=== PATIENT | female | born 1955 | race African-American/Black ===

== ENCOUNTER 2017-07-18 16:36 | Inpatient (IN) | payer OTHER ==
[2017-07-18 19:48] VITALS: BMI 29.1
--- NOTE | 2017-07-18 20:43 | HP ---
CIWA Score - CIWA Score Nausea/Vomitin Muscle Tremors: 2 Anxiety: 2 Agitation: 2 Paroxysmal Sweats: 2 Orientation: 1-Uncertain about Date Tacttile Disturbances: 2-Mild Itch/Numbness/Burn Auditory Disturbances: 1-Very Mild Visual Disturbances: 1-Very Mild Sensitivity Headache: 1-Very Mild CIWA-Ar Total Score: 16 Admission [facility] Chief Complaint: WITHDRAWAL SYMPTOMS Allergies/Adverse Reactions: Allergies Allergy/AdvReac Type Severity Reaction Status Date / Time shellfish derived AdvReac Verified 07/18/17 20:39 History of Present Illness: 61 Y.O. WOMAN WITH AN EXTENSIVE HISTORY OF ALCOHOL DEPENDENCE IS HERE SEEKING DETOX. SHE REPORTS HAVING A 12 YEAR HISTORY OF SOBRIETY. SHE WAS SEEN EARLIER AT [facility] AFTER SUSTAINING A FALL AND INJURING HER RIGHT EYE. ECCYMOSIS AND EDEMA TO RIGHT EYE NOTED. SHE WAS CLEARED TO BE EVALUATED FOR DETOX. Exam Limitations: Intoxication, Physical Impairment (GAIT IMBALANCE; HAS A CANE AND IS USING A MANUAL WHEELCHAIR FOR LOCOMOTION) - Ebola screening Have you traveled outside of the country in the last 21 days: No Have you had contact with anyone from an Ebola affected area: No Have you been sick,other than usual withdrawal symptoms: No Do you have a fever: No - Review of Systems Constitutional: Chills, Loss of Appetite, Changes in sleep, Weakness, Unintentional Wgt. Loss EENT: reports: Eye Pain (RIGHT EYE), Tearing, Other (RIGHT EYE EDEMA) Respiratory: reports: Cough Cardiac: reports: No Symptoms Reported GI: reports: Nausea, Other (INCONTINENCE OF BOWEL) : reports: Other (INCONTINENT OF BLADDER) Musculoskeletal: reports: Back Pain, Joint Pain Integumentary: reports: Dryness Neuro: reports: Headache, Tremors Endocrine: reports: No Symptoms Reported Hematology: reports: Anemia (LALIT) Psychiatric: reports: Judgement Intact, Mood/Affect Appropiate, Orientated x3, Depressed Other Systems: Reviewed and Negative Patient History - Patient Medical History Hx Anemia: Yes (LALIT ) Hx Asthma: Yes Hx Chronic Obstructive Pulmonary Disease (COPD): No Hx Cancer: No Hx Cardiac Disorders: No Hx Congestive Heart Failure: No Hx Hypertension: Yes Hx Hypercholesterolemia: Yes Hx Pacemaker: No HX Cerebrovascular Accident: No Hx Seizures: No Hx Dementia: No Hx Diabetes: Yes (TYPE II ) Hx Gastrointestinal Disorders: No Hx Liver Disease: No Hx Genitourinary Disorders: No Hx Sexually Transmitted Disorders: No Hx Renal Disease (ESRD): No Hx Thyroid Disease: No Hx Human Immunodeficiency Virus (HIV): No Hx Hepatitis C: Yes Hx Depression: Yes Hx Suicide Attempt: Yes (AT AGE 18, ATTETMPTED TO CUT HER WRISTS. ) Hx Bipolar Disorder: Yes Hx Schizophrenia: No - Patient Surgical History Past Surgical History: Yes Hx Section: Yes Hx Orthopedic Surgery: Yes (LEFT ANKLE-2013) Anesthesia Reaction: No - PPD History Previous Implant?: Yes Documented Results: Negative w/o proof PPD to be Administered?: Yes - Reproductive History Patient is a Female of Child Bearing Age (11 -55 yrs old): No - Smoking Cessation Smoking history: Current every day smoker Have you smoked in the past 12 months: Yes Aproximately how many cigarettes per day: 2 Initiated information on smoking cessation: Yes 'Breaking Loose' booklet given: 07/18/17 - Substance & Tx. History Hx Alcohol Use: Yes Hx Substance Use: No Substance Use Type: Alcohol Hx Substance Use Treatment: Yes (DETOX AND REHAB: 2013 AT [facility] ) - Substances Abused Alcohol Route: Oral Frequency: Daily Amount used: 6-8 CANS OF BEER Age of first use: 14 Date of Last Use: 07/17/17 Family Disease History - Family Disease History Family Disease History: Diabetes: Mother ( ), CA: Mother, Other: Father (ETOH DEPENDENCE; ), Mother Admission Physical Exam S - Vital Signs Vital Signs: Vital Signs - 24 hr 07/18/17 19:46 Temperature 98.2 F Pulse Rate 106 H Respiratory 20 Rate Blood Pressure 167/98 - Physical General Appearance: Yes: Tremorous, Anxious HEENTM: Yes: Hearing grossly Normal (RIGHT EYE EDEMA AND ECCYMOSIS), Other ( RIGHT EYE INJURY) Respiratory: Yes: Chest Non-Tender, Lungs Clear, Decreased Breath Sounds Neck: Yes: No masses,lesions,Nodules Breast: Yes: Breast Exam Deferred Cardiology: Yes: Regular Rhythm, Tachycardia Abdominal: Yes: Non Tender, Flat, Soft Genitourinary: Yes: Other (URINARY INCONTINENCE) Back: Yes: Decreased Range of Motion, Other (WEAKNESS AND UNSTEADY GAIT; USES A WHEELCHAIR FOR LOCOMOTION) Musculoskeletal: Yes: Back pain, Joint Stiffness Extremities: Yes: Tremors Neurological: Yes: Alert, Normal Mood/Affect, Normal Response Integumentary: Yes: Normal Color, Dry, Warm Lymphatic: Yes: Within Normal Limits - Diagnostic (1) Alcohol dependence with uncomplicated withdrawal Current Visit: Yes Status: Chronic (2) Diabetes mellitus, type 2 Current Visit: Yes Status: Chronic (3) Hypercholesteremia Current Visit: Yes Status: Chronic (4) LALIT (iron deficiency anemia) Current Visit: Yes Status: Chronic (5) Nicotine dependence Current Visit: Yes Status: Chronic (6) Asthma Current Visit: Yes Status: Chronic (7) Hypertension Current Visit: Yes Status: Chronic (8) Right eye injury Current Visit: Yes Status: Acute (9) Bowel and bladder incontinence Current Visit: Yes Status: Chronic (10) Unsteady gait Current Visit: Yes Status: Acute Cleared for Admission [facility] - Detox or Rehab [facility] Level of Care: Medically Managed Detox Regimen/Protocol: Librium [facility] Breath Alcohol Content Breath Alcohol Content: 0.101 Urine Pregancy Test - Result Urine Test Results: Negative- NO Line Present Urine Drug Screen - Results Drug Screen Negative: No Urine Drug Screen Results: BZO-Benzodiazepines
[2017-07-18] MEDS ORDERED: MAG HYDROX/AL HYDROX/SIMETH 30 ML UNIT-DOSE CUP PO PRN (21:13)
[2017-07-18] MEDS ORDERED: chlordiazePOXIDE HCL 25 MG CAPSULE PO PRN (21:13)
[2017-07-18] MEDS ORDERED: MAGNESIUM HYDROX 2400MG/30ML ORAL SUSPENSION 30 ML CUP PO PRN (21:13)
[2017-07-18] MEDS ORDERED: IBUPROFEN 400 MG TABLET (FP) PO PRN (21:13)
[2017-07-18] MEDS ORDERED: chlordiazePOXIDE HCL 25 MG CAPSULE PO ONE (21:13)
[2017-07-18] MEDS ORDERED: LOPERAMIDE HCL 2 MG CAPSULE PO PRN (21:13)
[2017-07-18] MEDS ORDERED: P-EPHED 60MG/TRIPROLIDI 2.5MG TABLET PO PRN (21:13)
[2017-07-18] MEDS ORDERED: guaiFENesin/D-METHORPHAN HB 10 ML UNIT-DOSE CUPS PO PRN (21:13)
[2017-07-18] MEDS ORDERED: diphenhydrAMINE HCL 50 MG CAPSULE PO PRN (21:13)
[2017-07-18] MEDS ORDERED: hydrOXYzine PAMOATE 50 MG CAPSULE (FP) PO PRN (21:13)
[2017-07-18] MEDS ORDERED: MENTHOL/PHENOL 1 EACH UD MM PRN (21:13)
[2017-07-18] MEDS ORDERED: MAGNESIUM CITRATE 300 ML BOTTLE PO PRN (21:13)
[2017-07-18] MEDS ORDERED: cloNIDine HCL 0.1 MG TABLET PO ONE (21:17)
[2017-07-18] MEDS ORDERED: ALBUTEROL SO4 6.7 GM HFA INHALER IH PRN (21:17)
[2017-07-18] MEDS: ATORVASTATIN CA 40 MG TABLET (FP) PO SCH (22:57)
[2017-07-18] MEDS: THIAMINE HCL 100 MG TABLET (FP) PO SCH (22:58)
[2017-07-18] MEDS: chlordiazePOXIDE HCL 25 MG CAPSULE PO SCH (22:58)
[2017-07-18 23:28] LABS: URINE APPEARANCE CLEAR; URINE BILIRUBIN NEGATIVE (NEGATIVE); URINE BLOOD 3+ (NEGATIVE); URINE COLOR LT. YELLOW; URINE GLUCOSE (UA) NEGATIVE (NEGATIVE); URINE KETONE NEGATIVE (NEGATIVE); URINE NITRITE NEGATIVE (NEGATIVE); URINE PROTEIN 1+ (NEGATIVE); URINE UROBILINOGEN 0.2 mg/dL (0.2-1.0)
[2017-07-18 23:36] LABS: URINE BACTERIA RARE /hpf (NONE SEEN); URINE HYALINE CAST 3 /lpf; URINE MUCUS RARE; URINE RBC 2 /hpf (0-3)
[2017-07-19] MEDS: chlordiazePOXIDE HCL 25 MG CAPSULE PO SCH ×4 (06:16→22:40)
[2017-07-19] MEDS ORDERED: INSULIN (NOVOLOG) ASPART 100 UNITS/ML 10ML VIAL ONE ×2 (07:10→17:51)
[2017-07-19] MEDS ORDERED: cloNIDine HCL 0.1 MG TABLET PO ONE (07:15)
[2017-07-19] MEDS: INSULIN SLIDING SCALE (NOVOLOG) 1 VIAL SQ SCH ×2 (07:25→17:25)
[2017-07-19] MEDS: metFORMIN HCL 500 MG TABLET (FP) PO SCH ×2 (07:25→17:25)
[2017-07-19 09:48] LABS: MCH 31.4 pg (25.7-33.7); MCHC 33.8 g/dl (32.0-36.0); MEAN CELL VOLUME 92.9 fl (80-96); MEAN PLT VOLUME 9.1 fl (7.5-11.1); PLATELET COUNT 57 K/MM3 (134-434); RDW 16.1 % (11.6-15.6); WHITE BLOOD COUNT 5.1 K/mm3 (4.0-10.0)
[2017-07-19] MEDS ORDERED: amLODIPine BESYLATE 5 MG TABLET (FP) PO SCH (10:00)
--- NOTE | 2017-07-19 10:04 | PN ---
S CIWA - CIWA Score Nausea/Vomitin Muscle Tremors: 4-Moderate,w/Arms Extend Anxiety: 4-Mod. Anxious/Guarded Agitation: 4-Moderately Restless Paroxysmal Sweats: 3 Orientation: 0-Oriented Tacttile Disturbances: 1-Very Mild Itch/Numbness Auditory Disturbances: 0-None Visual Disturbances: 0-None Headache: 1-Very Mild CIWA-Ar Total Score: 20 BHS Progress Note (SOAP) Subjective: nausea, sweats, interrupted sleep, anxiety, tremors Objective: 07/19/17 10:03 Vital Signs - 8 hr 07/19/17 07/19/17 03:30 06:37 Temperature 99.9 F H Pulse Rate 110 H Respiratory 18 20 Rate Blood Pressure 167/71 Laboratory Tests 07/18/17 07/19/17 18:30 06:24 POC Glucometer 190 Urine Color Lt. yellow Urine Appearance Clear Urine pH 6.0 Urine Protein 1+ H Urine Glucose (UA) Negative Urine Ketones Negative Urine Blood 3+ H Urine Nitrite Negative Urine Bilirubin Negative Urine Urobilinogen 0.2 Urine RBC 2 Urine WBC None Ur Epithelial Cells Rare Urine Bacteria Rare Hyaline Casts 3 Urine Mucus Rare Laboratory Tests 07/18/17 07/19/17 18:30 06:24 POC Glucometer 190 Urine Color Lt. yellow Urine Appearance Clear Urine pH 6.0 Urine Protein 1+ H Urine Glucose (UA) Negative Urine Ketones Negative Urine Blood 3+ H Urine Nitrite Negative Urine Bilirubin Negative Urine Urobilinogen 0.2 Urine RBC 2 Urine WBC None Ur Epithelial Cells Rare Urine Bacteria Rare Hyaline Casts 3 Urine Mucus Rare labs pending Assessment: 07/19/17 10:04 withdrawal sx Plan: cont detox, fluids, encourage ambulation
[2017-07-19 10:22] LABS: ALBUMIN 2.9 g/dl (3.4-5.0); ALK PHOS 109 U/L (45-117); ANION GAP 10 (8-16); BILIRUBIN,TOTAL 2.2 mg/dL (0.2-1.0); CALCIUM 8.4 mg/dL (8.5-10.1); CO2 27 mmol/L (21-32); CREATININE 0.7 mg/dL (0.55-1.02); GLUCOSE,RANDOM 150 mg/dL (74-106); SGOT/AST 147 U/L (15-37); SGPT/ALT 66 U/L (12-78); TOT PROT 6.8 g/dl (6.4-8.2)
[2017-07-19] MEDS: PRENATAL VITAMINS W/ FOLIC ACID TABLET (FP) PO SCH (10:42)
[2017-07-19] MEDS: FERROUS SO4 325 MG TABLET (FP) PO SCH (11:00)
[2017-07-19 12:38] LABS: HIV 1 & 2 AB NEGATIVE; HIV 1 AGp24 NEGATIVE
--- NOTE | 2017-07-19 13:02 | EKG ---
Test Reason : Blood Pressure : / mmHG Vent. Rate : 109 BPM Atrial Rate : 109 BPM P-R Int : 156 ms QRS Dur : 100 ms QT Int : 376 ms P-R-T Axes : 072 020 063 degrees QTc Int : 506 ms SINUS TACHYCARDIA NONSPECIFIC ST ABNORMALITY NO PREVIOUS ECGS AVAILABLE REPEAT EKG IF CLINICALLY INDICATED Confirmed by SYDNEY PILLAI MD ([id number] on 07/19/2017 1:01:31 PM Referred By: Confirmed By:SYDNEY PILLAI MD
--- NOTE | 2017-07-19 14:06 | CONSULT ---
[facility] Psychiatric Consult - Data Date of interview: 07/19/17 Admission source: [facility] Identifying data: First admission to [facility] for this 61 y/o AA female seeking detox treatment on for alcohol dependence.Patient is single,a mother of eleven,domiciled,unemployed and supported on SSI benefits. Substance Abuse History: Discussed with the patient in this session. Smoking Cessation. Smoking history: Current every day smoker. Have you smoked in the past 12 months: Yes. Aproximately how many cigarettes per day: 2. Initiated information on smoking cessation: Yes. 'Breaking Loose' booklet given: . - Substance & Tx. History. Hx Alcohol Use: Yes. Hx Substance Use: No. Substance Use Type: Alcohol. Hx Substance Use Treatment: Yes (DETOX AND REHAB: 2013 AT [facility] ). - Substances Abused. Alcohol. Route: Oral. Frequency: Daily. Amount used: 6-8 CANS OF BEER. Age of first use: 14. Date of Last Use: 07/17/17 Medical History: Remarkable for anemia,bronchial asthma,hypertension, dyslipidemia,hepatitis C,diabetes mellitus,low back pain and gait imbalance ( walks with a cane/also known to use a wheelchair for locomotion).Noted ecchymosis of both eyelids (right eye) from an accidental fall prior to this [facility] visit. Psychiatric History: Patient admits to a previous psychiatric hospitalization at [facility] (Marisa-2).Diagnosed with MDD.Prescribed celexa, trazodone and seroquel (doses not recalled).Ms Landaverde reports chronic non- adherence to medications.No OPD care.Patient indicates that she goes to emergency rooms for medications refills." Not sure about the last time I took my medications ".Patient endorses a remote history of suicide attempt (age 18) via wrist-cutting. Physical/Sexual Abuse/Trauma History: No history of abuse reported. Additional Comment: Urine Drug Screen Results: BZO-Benzodiazepines.Noted. Mental Status Exam - Mental Status Exam Alert and Oriented to: Place, Person Cognitive Function: Impaired Patient Appearance: Unkempt, Disheveled Mood: Sad, Nervous, Withdrawn, Anxious Affect: Mood Congruent, Constricted Patient Behavior: Sedated (marked sedation), Fatigued Speech Pattern: Delayed, Slurred Voice Loudness: Moderately Soft/Quiet Thought Process: Disorganized Thought Disorder: Not Present Hallucinations: Denies Suicidal Ideation: Denies Homicidal Ideation: Denies Insight/Judgement: Poor Sleep: Fair Appetite: Poor, Weight loss Gait/Station: Other (unsteady gait; uses a cane for ambulation.) Psychiatric Findings - Problem List ([place] 1, 2,3) (1) Sedated Current Visit: Yes Status: Acute (2) Alcohol dependence with uncomplicated withdrawal Current Visit: Yes Status: Acute (3) Nicotine dependence Current Visit: Yes Status: Acute (4) Substance induced mood disorder Current Visit: Yes Status: Acute (5) Right eye injury Current Visit: Yes Status: Acute (6) Unsteady gait Current Visit: Yes Status: Acute (7) Asthma Current Visit: Yes Status: Chronic (8) Bowel and bladder incontinence Current Visit: Yes Status: Chronic (9) Diabetes mellitus, type 2 Current Visit: Yes Status: Chronic (10) Hypercholesteremia Current Visit: Yes Status: Chronic (11) Hypertension Current Visit: Yes Status: Chronic (12) LALIT (iron deficiency anemia) Current Visit: Yes Status: Chronic - Initial Treatment Plan Initial Treatment Plan: Psychoeducation not suitable at this time due to sedated state.Detoxification in progress.Falls precautions.Observation.
[2017-07-19] MEDS: ATORVASTATIN CA 40 MG TABLET (FP) PO SCH (22:40)
[2017-07-19] MEDS: THIAMINE HCL 100 MG TABLET (FP) PO SCH (22:40)
[2017-07-20] MEDS: chlordiazePOXIDE HCL 25 MG CAPSULE PO SCH ×3 (05:40→17:52)
[2017-07-20] MEDS: metFORMIN HCL 500 MG TABLET (FP) PO SCH ×2 (07:06→16:58)
[2017-07-20] MEDS: INSULIN SLIDING SCALE (NOVOLOG) 1 VIAL SQ SCH ×2 (07:07→16:59)
[2017-07-20] MEDS ORDERED: cloNIDine HCL 0.1 MG TABLET PO ONE (08:01)
--- NOTE | 2017-07-20 08:42 | PN ---
S CIWA - CIWA Score Nausea/Vomitin Muscle Tremors: 4-Moderate,w/Arms Extend Anxiety: 3 Agitation: 4-Moderately Restless Paroxysmal Sweats: 3 Orientation: 0-Oriented Tacttile Disturbances: 1-Very Mild Itch/Numbness Auditory Disturbances: 0-None Visual Disturbances: 0-None Headache: 1-Very Mild CIWA-Ar Total Score: 19 BHS Progress Note (SOAP) Subjective: nausea, sweats, interrupted sleep, anxiety, tremors Objective: 07/20/17 08:41 Vital Signs - 8 hr 07/20/17 07/20/17 03:30 06:23 Temperature 98 F Pulse Rate 100 H Respiratory 18 20 Rate Blood Pressure 160/85 Laboratory Tests 07/18/17 07/19/17 07/19/17 18:30 06:24 07:00 WBC 5.1 RBC 3.29 L Hgb 10.3 L Hct 30.5 L MCV 92.9 MCH 31.4 MCHC 33.8 RDW 16.1 H Plt Count 57 L MPV 9.1 Sodium Potassium Chloride Carbon Dioxide Anion Gap BUN Creatinine Creat Clearance w eGFR POC Glucometer 190 Random Glucose Calcium Total Bilirubin AST ALT Alkaline Phosphatase Total Protein Albumin Urine Color Lt. yellow Urine Appearance Clear Urine pH 6.0 Ur Specific [place] 1.020 Urine Protein 1+ H Urine Glucose (UA) Negative Urine Ketones Negative Urine Blood 3+ H Urine Nitrite Negative Urine Bilirubin Negative Urine Urobilinogen 0.2 Urine RBC 2 Urine WBC None Ur Epithelial Cells Rare Urine Bacteria Rare Hyaline Casts 3 Urine Mucus Rare RPR Titer HIV 1&2 Antibody Screen HIV P24 Antigen 07/19/17 07/19/17 07/19/17 07:00 07:00 07:00 WBC RBC Hgb Hct MCV MCH MCHC RDW Plt Count MPV Sodium 140 Potassium 3.6 Chloride 103 Carbon Dioxide 27 Anion Gap 10 BUN 7 Creatinine 0.7 Creat Clearance w eGFR > 60 POC Glucometer Random Glucose 150 H Calcium 8.4 L Total Bilirubin 2.2 H AST 147 H ALT 66 Alkaline Phosphatase 109 Total Protein 6.8 Albumin 2.9 L Urine Color Urine Appearance Urine pH Ur Specific [place] Urine Protein Urine Glucose (UA) Urine Ketones Urine Blood Urine Nitrite Urine Bilirubin Urine Urobilinogen Urine RBC Urine WBC Ur Epithelial Cells Urine Bacteria Hyaline Casts Urine Mucus RPR Titer Nonreactive HIV 1&2 Antibody Screen Negative HIV P24 Antigen Negative 07/19/17 07/20/17 16:37 05:43 WBC RBC Hgb Hct MCV MCH MCHC RDW Plt Count MPV Sodium Potassium Chloride Carbon Dioxide Anion Gap BUN Creatinine Creat Clearance w eGFR POC Glucometer 178 101 Random Glucose Calcium Total Bilirubin AST ALT Alkaline Phosphatase Total Protein Albumin Urine Color Urine Appearance Urine pH Ur Specific [place] Urine Protein Urine Glucose (UA) Urine Ketones Urine Blood Urine Nitrite Urine Bilirubin Urine Urobilinogen Urine RBC Urine WBC Ur Epithelial Cells Urine Bacteria Hyaline Casts Urine Mucus RPR Titer HIV 1&2 Antibody Screen HIV P24 Antigen Assessment: 07/20/17 08:41 withdrawawl sx, anemia Plan: cont detox, lfuids, iron supplements
[2017-07-20] MEDS ORDERED: amLODIPine BESYLATE 10 MG TABLET (FP) PO SCH (09:17)
--- NOTE | 2017-07-20 10:24 | EKG ---
Test Reason : Blood Pressure : / mmHG Vent. Rate : 099 BPM Atrial Rate : 099 BPM P-R Int : 176 ms QRS Dur : 098 ms QT Int : 406 ms P-R-T Axes : 058 003 031 degrees QTc Int : 521 ms NORMAL SINUS RHYTHM PROLONGED QT ABNORMAL ECG WHEN COMPARED WITH ECG OF 18-JUL-2017 21:45, NO SIGNIFICANT CHANGE WAS FOUND Confirmed by ARAMIS PINOT MD ([id number] on 07/20/2017 10:23:55 AM Referred By: Confirmed By:ARAMIS PINTO MD
[2017-07-20] MEDS: FERROUS SO4 325 MG TABLET (FP) PO SCH (11:24)
[2017-07-20] MEDS: PRENATAL VITAMINS W/ FOLIC ACID TABLET (FP) PO SCH (11:24)
[2017-07-20] MEDS: amLODIPine BESYLATE 10 MG TABLET (FP) PO SCH (11:24)
[2017-07-20] MEDS: LISINOPRIL 5 MG TABLET (FP) PO SCH (11:25)
[2017-07-20] MEDS: ACETAMINOPHEN 325 MG TABLET (FP) PO PRN ×2 (14:58→20:58)
[2017-07-20] MEDS ORDERED: INSULIN (NOVOLOG) ASPART 100 UNITS/ML 10ML VIAL ONE (16:55)
[2017-07-20] MEDS: THIAMINE HCL 100 MG TABLET (FP) PO SCH (22:18)
[2017-07-20] MEDS: chlordiazePOXIDE 5 MG CAPSULE PO SCH (22:18)
[2017-07-20] MEDS: ATORVASTATIN CA 40 MG TABLET (FP) PO SCH (22:18)
[2017-07-21] MEDS: chlordiazePOXIDE 5 MG CAPSULE PO SCH ×3 (07:03→17:55)
[2017-07-21] MEDS ORDERED: INSULIN (NOVOLOG) ASPART 100 UNITS/ML 10ML VIAL ONE (07:09)
[2017-07-21] MEDS: metFORMIN HCL 500 MG TABLET (FP) PO SCH ×2 (07:10→17:25)
[2017-07-21] MEDS: INSULIN SLIDING SCALE (NOVOLOG) 1 VIAL SQ SCH ×2 (07:11→16:54)
[2017-07-21] MEDS: ACETAMINOPHEN 325 MG TABLET (FP) PO PRN (07:15)
--- NOTE | 2017-07-21 09:27 | PN ---
BHS Progress Note (SOAP) Subjective: nausea, sweats, interrupted sleep, anxiety, tremors Objective: 07/21/17 09:25 Vital Signs - 24 hr 07/20/17 07/20/17 07/20/17 10:00 14:09 18:11 Temperature 98.4 F 98.4 F 98.1 F Pulse Rate 116 H 122 H 129 H Respiratory 18 18 20 Rate Blood Pressure 119/55 141/84 115/72 07/20/17 07/21/17 07/21/17 23:39 00:30 03:30 Temperature 100.9 F H Pulse Rate 113 H Respiratory 18 18 18 Rate Blood Pressure 132/80 07/21/17 06:44 Temperature 100.6 F H Pulse Rate 93 H Respiratory 20 Rate Blood Pressure 153/84 Laboratory Tests 07/18/17 07/19/17 07/19/17 18:30 06:24 07:00 WBC 5.1 RBC 3.29 L Hgb 10.3 L Hct 30.5 L MCV 92.9 MCH 31.4 MCHC 33.8 RDW 16.1 H Plt Count 57 L MPV 9.1 Sodium Potassium Chloride Carbon Dioxide Anion Gap BUN Creatinine Creat Clearance w eGFR POC Glucometer 190 Random Glucose Calcium Total Bilirubin AST ALT Alkaline Phosphatase Total Protein Albumin Urine Color Lt. yellow Urine Appearance Clear Urine pH 6.0 Ur Specific [place] 1.020 Urine Protein 1+ H Urine Glucose (UA) Negative Urine Ketones Negative Urine Blood 3+ H Urine Nitrite Negative Urine Bilirubin Negative Urine Urobilinogen 0.2 Urine RBC 2 Urine WBC None Ur Epithelial Cells Rare Urine Bacteria Rare Hyaline Casts 3 Urine Mucus Rare RPR Titer HIV 1&2 Antibody Screen HIV P24 Antigen 07/19/17 07/19/17 07/19/17 07:00 07:00 07:00 WBC RBC Hgb Hct MCV MCH MCHC RDW Plt Count MPV Sodium 140 Potassium 3.6 Chloride 103 Carbon Dioxide 27 Anion Gap 10 BUN 7 Creatinine 0.7 Creat Clearance w eGFR > 60 POC Glucometer Random Glucose 150 H Calcium 8.4 L Total Bilirubin 2.2 H AST 147 H ALT 66 Alkaline Phosphatase 109 Total Protein 6.8 Albumin 2.9 L Urine Color Urine Appearance Urine pH Ur Specific [place] Urine Protein Urine Glucose (UA) Urine Ketones Urine Blood Urine Nitrite Urine Bilirubin Urine Urobilinogen Urine RBC Urine WBC Ur Epithelial Cells Urine Bacteria Hyaline Casts Urine Mucus RPR Titer Nonreactive HIV 1&2 Antibody Screen Negative HIV P24 Antigen Negative 07/19/17 07/20/17 07/20/17 16:37 05:43 16:41 WBC RBC Hgb Hct MCV MCH MCHC RDW Plt Count MPV Sodium Potassium Chloride Carbon Dioxide Anion Gap BUN Creatinine Creat Clearance w eGFR POC Glucometer 178 101 192 Random Glucose Calcium Total Bilirubin AST ALT Alkaline Phosphatase Total Protein Albumin Urine Color Urine Appearance Urine pH Ur Specific [place] Urine Protein Urine Glucose (UA) Urine Ketones Urine Blood Urine Nitrite Urine Bilirubin Urine Urobilinogen Urine RBC Urine WBC Ur Epithelial Cells Urine Bacteria Hyaline Casts Urine Mucus RPR Titer HIV 1&2 Antibody Screen HIV P24 Antigen 07/21/17 06:48 WBC RBC Hgb Hct MCV MCH MCHC RDW Plt Count MPV Sodium Potassium Chloride Carbon Dioxide Anion Gap BUN Creatinine Creat Clearance w eGFR POC Glucometer 184 Random Glucose Calcium Total Bilirubin AST ALT Alkaline Phosphatase Total Protein Albumin Urine Color Urine Appearance Urine pH Ur Specific [place] Urine Protein Urine Glucose (UA) Urine Ketones Urine Blood Urine Nitrite Urine Bilirubin Urine Urobilinogen Urine RBC Urine WBC Ur Epithelial Cells Urine Bacteria Hyaline Casts Urine Mucus RPR Titer HIV 1&2 Antibody Screen HIV P24 Antigen Assessment: 07/21/17 09:26 withdrawwal sx, labs reviewed, anemia, malnutrition/hypoalbuminemia 2/2 substance use disorder/livr disease Plan: cont detocx, fluids, iron supplemeents
[2017-07-21] MEDS: PANTOPRAZOLE 40 MG TABLET (FP) PO SCH (10:00)
[2017-07-21] MEDS: FERROUS SO4 325 MG TABLET (FP) PO SCH (11:23)
[2017-07-21] MEDS: LISINOPRIL 5 MG TABLET (FP) PO SCH (11:23)
[2017-07-21] MEDS: PRENATAL VITAMINS W/ FOLIC ACID TABLET (FP) PO SCH (11:23)
[2017-07-21] MEDS: amLODIPine BESYLATE 10 MG TABLET (FP) PO SCH (11:23)
[2017-07-21] MEDS: NAPROXEN 500 MG TABLET (FP) PO SCH ×2 (11:26→22:35)
[2017-07-21] MEDS ORDERED: DOCUSATE SODIUM 100 MG CAPSULE (FP) PO SCH (22:00)
[2017-07-21] MEDS: THIAMINE HCL 100 MG TABLET (FP) PO SCH (22:36)
[2017-07-21] MEDS: ATORVASTATIN CA 40 MG TABLET (FP) PO SCH (22:36)
[2017-07-21] MEDS: chlordiazePOXIDE HCL 10 MG CAPSULE PO SCH (22:40)
[2017-07-22] MEDS: chlordiazePOXIDE HCL 10 MG CAPSULE PO SCH ×2 (05:53→12:08)
[2017-07-22] MEDS: metFORMIN HCL 500 MG TABLET (FP) PO SCH (06:34)
[2017-07-22] MEDS: INSULIN SLIDING SCALE (NOVOLOG) 1 VIAL SQ SCH (06:35)
[2017-07-22 09:33] VITALS: BP 139/68; PULSE 118; TEMP 98.1
--- NOTE | 2017-07-22 10:09 | DS ---
[facility] Detox Discharge Summary Admission Date: 07/18/17 Discharge Date: 07/22/17 - History Present History: Alcohol Dependence Pertinent Past History: nicotine dependence, insomnia, anxiety, depression - Physical Exam Results Vital Signs: Vital Signs Temperature 98.1 F 07/22/17 09:32 Pulse Rate 118 H 07/22/17 09:32 Respiratory Rate 18 07/22/17 09:32 Blood Pressure 139/68 07/22/17 09:32 O2 Sat by Pulse Oximetry (%) Laboratory Tests 07/18/17 07/19/17 07/19/17 18:30 06:24 07:00 WBC 5.1 RBC 3.29 L Hgb 10.3 L Hct 30.5 L MCV 92.9 MCH 31.4 MCHC 33.8 RDW 16.1 H Plt Count 57 L MPV 9.1 Sodium Potassium Chloride Carbon Dioxide Anion Gap BUN Creatinine Creat Clearance w eGFR POC Glucometer 190 Random Glucose Calcium Total Bilirubin AST ALT Alkaline Phosphatase Total Protein Albumin Urine Color Lt. yellow Urine Appearance Clear Urine pH 6.0 Ur Specific [place] 1.020 Urine Protein 1+ H Urine Glucose (UA) Negative Urine Ketones Negative Urine Blood 3+ H Urine Nitrite Negative Urine Bilirubin Negative Urine Urobilinogen 0.2 Urine RBC 2 Urine WBC None Ur Epithelial Cells Rare Urine Bacteria Rare Hyaline Casts 3 Urine Mucus Rare RPR Titer HIV 1&2 Antibody Screen HIV P24 Antigen 07/19/17 07/19/17 07/19/17 07:00 07:00 07:00 WBC RBC Hgb Hct MCV MCH MCHC RDW Plt Count MPV Sodium 140 Potassium 3.6 Chloride 103 Carbon Dioxide 27 Anion Gap 10 BUN 7 Creatinine 0.7 Creat Clearance w eGFR > 60 POC Glucometer Random Glucose 150 H Calcium 8.4 L Total Bilirubin 2.2 H AST 147 H ALT 66 Alkaline Phosphatase 109 Total Protein 6.8 Albumin 2.9 L Urine Color Urine Appearance Urine pH Ur Specific [place] Urine Protein Urine Glucose (UA) Urine Ketones Urine Blood Urine Nitrite Urine Bilirubin Urine Urobilinogen Urine RBC Urine WBC Ur Epithelial Cells Urine Bacteria Hyaline Casts Urine Mucus RPR Titer Nonreactive HIV 1&2 Antibody Screen Negative HIV P24 Antigen Negative 07/19/17 07/20/17 07/20/17 16:37 05:43 16:41 WBC RBC Hgb Hct MCV MCH MCHC RDW Plt Count MPV Sodium Potassium Chloride Carbon Dioxide Anion Gap BUN Creatinine Creat Clearance w eGFR POC Glucometer 178 101 192 Random Glucose Calcium Total Bilirubin AST ALT Alkaline Phosphatase Total Protein Albumin Urine Color Urine Appearance Urine pH Ur Specific [place] Urine Protein Urine Glucose (UA) Urine Ketones Urine Blood Urine Nitrite Urine Bilirubin Urine Urobilinogen Urine RBC Urine WBC Ur Epithelial Cells Urine Bacteria Hyaline Casts Urine Mucus RPR Titer HIV 1&2 Antibody Screen HIV P24 Antigen 07/21/17 07/21/17 07/22/17 06:48 16:39 05:51 WBC RBC Hgb Hct MCV MCH MCHC RDW Plt Count MPV Sodium Potassium Chloride Carbon Dioxide Anion Gap BUN Creatinine Creat Clearance w eGFR POC Glucometer 184 131 130 Random Glucose Calcium Total Bilirubin AST ALT Alkaline Phosphatase Total Protein Albumin Urine Color Urine Appearance Urine pH Ur Specific [place] Urine Protein Urine Glucose (UA) Urine Ketones Urine Blood Urine Nitrite Urine Bilirubin Urine Urobilinogen Urine RBC Urine WBC Ur Epithelial Cells Urine Bacteria Hyaline Casts Urine Mucus RPR Titer HIV 1&2 Antibody Screen HIV P24 Antigen Pertinent Admission Physical Exam Findings: withdrawal sx - Treatment Hospital Course: Detox Protocol Followed, Detoxed Safely, Responded well, Discharged Condition Good, Rehab Referral Accepted Patient has Accepted a Rehab Referral to: Yes - Medication Discharge Medications: Ambulatory Orders Amlodipine Besylate [Norvasc -] 5 mg PO DAILY 07/18/17 Citalopram Hydrobromide [Celexa -] 20 mg PO DAILY 07/18/17 Metformin HCl [Glucophage -] 500 mg PO BID 07/18/17 Quetiapine Fumarate [Seroquel -] 200 mg PO HS 07/18/17 Simvastatin [Zocor -] 20 mg PO HS 07/18/17 Trazodone HCl [Desyrel -] 100 mg PO HS 07/18/17 - Diagnosis (1) Alcohol dependence with uncomplicated withdrawal Current Visit: Yes Status: Chronic (2) Nicotine dependence Current Visit: Yes Status: Chronic (3) Right eye injury Current Visit: Yes Status: Acute (4) Substance induced mood disorder Current Visit: Yes Status: Acute (5) Unsteady gait Current Visit: Yes Status: Acute (6) Asthma Current Visit: Yes Status: Chronic (7) Bowel and bladder incontinence Current Visit: Yes Status: Chronic (8) Diabetes mellitus, type 2 Current Visit: Yes Status: Chronic (9) Hypercholesteremia Current Visit: Yes Status: Chronic (10) Hypertension Current Visit: Yes Status: Chronic (11) LALIT (iron deficiency anemia) Current Visit: Yes Status: Chronic - AMA Did Patient Leave Against Medical Advice: No
[2017-07-22] MEDS: amLODIPine BESYLATE 10 MG TABLET (FP) PO SCH (10:24)
[2017-07-22] MEDS: LISINOPRIL 5 MG TABLET (FP) PO SCH (10:24)
[2017-07-22] MEDS: PRENATAL VITAMINS W/ FOLIC ACID TABLET (FP) PO SCH (10:24)
[2017-07-22] MEDS: PANTOPRAZOLE 40 MG TABLET (FP) PO SCH (10:24)
[2017-07-22] MEDS: NAPROXEN 500 MG TABLET (FP) PO SCH (10:24)
[2017-07-22] MEDS: FERROUS SO4 325 MG TABLET (FP) PO SCH (10:24)
== END 2017-07-22 12:40 | disposition home or self-care (01) | DRG 775 ==
LOC: YASAS 16:36 → Y6N 21:58
PROVIDERS: ADMIT Internal Medicine; ATTEND Internal Medicine
PROC: HZ2ZZZZ Detoxification Services for Substance Abuse Treatment (ICD-10-PCS; principal; 2017-07-18)
DX: F10.230 Alcohol dependence with withdrawal, uncomplicated (principal); F17.210 Nicotine dependence, cigarettes, uncomplicated; F19.24 Other psychoactive substance dependence with psychoactive substance-induced mood disorder; I10 Essential (primary) hypertension; E11.9 Type 2 diabetes mellitus without complications; D50.8 Other iron deficiency anemias; J45.909 Unspecified asthma, uncomplicated; S00.11XA Contusion of right eyelid and periocular area, initial encounter; W19.XXXA Unspecified fall, initial encounter; R26.81 Unsteadiness on feet; R26.89 Other abnormalities of gait and mobility; Z99.89 Dependence on other enabling machines and devices
CPT/HCPCS: 36415; 80053; 81003; 81015; 85027; 86593; 87389; 93005; 93010